=== PATIENT | female | born 1950 | race Caucasian/White ===

== ENCOUNTER 2017-12-15 07:03 | Day surgery (SDC) | payer MEDICARE, OTHER ==
[2017-12-15] MEDS ORDERED: Lactated Ringers 1,000 ML IV SCH (07:30)
[2017-12-15] MEDS ORDERED: fentaNYL 100 MCG/2 ML SDV ONE (09:04)
[2017-12-15] MEDS ORDERED: Propofol 200 MG/20 ML SDV ONE ×2 (09:04→09:42)
[2017-12-15] MEDS ORDERED: Midazolam 1 MG/ML 2 ML SDV ONE (09:04)
--- NOTE | 2017-12-15 14:42 | OR ---
DATE OF PROCEDURE: 12/15/2017 PREOPERATIVE DIAGNOSIS: Colon cancer screening. POSTOPERATIVE DIAGNOSIS: Unremarkable colonoscopy. PROCEDURE PERFORMED: Colonoscopy to the cecum. SURGEON: Duarte Loja MD ANESTHESIA: IV anesthesia with monitored anesthesia care. INDICATION: This 67-year-old white female is referred for a colonoscopy for colon cancer screening. She says her last colonoscopic exam was done 10 years ago. Also, she apparently mentioned that she has a history of colon polyps. The type is unknown to me. I counseled her for a colonoscopy with possible biopsy and/or polypectomy, including risks and alternatives, and she gave her informed consent to proceed. DESCRIPTION OF PROCEDURE: The patient was placed in the left lateral decubitus position. IV anesthesia was administered by the Anesthesia Service. Time-out was held. A rectal exam was performed, which was unremarkable. The flexible video Olympus colonoscope was introduced through her anus, up her rectum, and out her colon all the way to the cecum. To accomplish this, we did have to apply some abdominal compression. Once the cecum was reached, the scope was slowly withdrawn, examining the mucosa throughout. No mucosal abnormalities were noted. The scope was retroflexed in the rectum with the distal rectum appearing unremarkable. The scope was straightened and removed. She tolerated the procedure well. Duarte Loja MD /[id number]
== END 2017-12-15 11:50 | disposition home or self-care (01) ==
LOC: JP.SDS 07:03
PROVIDERS: ATTEND Surgery
DX: Z12.11 Encounter for screening for malignant neoplasm of colon (principal); E66.9 Obesity, unspecified; E78.5 Hyperlipidemia, unspecified; F32.9 Major depressive disorder, single episode, unspecified; Z86.010 Personal history of colon polyps
CPT/HCPCS: G0121; J2250; J2704; J3010; J7120

== ENCOUNTER 2024-05-31 05:51 | Day surgery (SDC) | payer MEDICARE, OTHER ==
[2024-05-31 06:36] LABS: HEMATOCRIT 40.8 % (34.3-46.0); HEMOGLOBIN 14.1 g/dL (11.2-15.5); MEAN CORPUSCULAR HEMOGLOBIN 30.9 pg (31.6-35.5); MEAN CORPUSCULAR HGB CONC 34.6 g/dL (31.6-35.5); MEAN CORPUSCULAR VOLUME 89.3 fL (81.4-99.0); RED BLOOD CELL COUNT 4.57 M/uL (3.77-5.24); WHITE BLOOD CELL COUNT,WBC 7.1 K/uL (3.2-11.0)
[2024-05-31] MEDS: Nozin Nasal Sanitizer NASBOTH ONE (06:46)
[2024-05-31 06:51] LABS: ANION GAP 6.1 mmol/L (5.0-14.0); CALCIUM 9.4 mg/dL (8.5-10.1); EST CRCL DRUG DOSING (CG) 49.79 mL/min; POTASSIUM,K 3.9 mmol/L (3.6-5.2)
[2024-05-31] MEDS: Lactated Ringers 1,000 ML IV SCH (07:07)
[2024-05-31] MEDS ORDERED: Midazolam 1 MG/ML 2 ML SDV ONE (07:40)
[2024-05-31] MEDS ORDERED: fentaNYL 100 MCG/2 ML SDV ONE (07:40)
[2024-05-31] MEDS ORDERED: Propofol 200 MG/20 ML SDV ONE (07:40)
[2024-05-31] MEDS: ceFAZolin 1 GM in Premix Bag 1 BAG IV ONE (09:10)
[2024-05-31] MEDS: Bupivacaine 0.5% 30 ML SDV ONE (09:14)
== END 2024-05-31 09:20 | disposition home or self-care (01) ==
LOC: JP.SDS 05:51
PROVIDERS: ATTEND Specialist
DX: M65.321 Trigger finger, right index finger (principal); E66.9 Obesity, unspecified
CPT/HCPCS: 01810; 26055; 36415; 80048; 85027; A9270; J0665; J0689; J2250; J2704; J3010; J7120

== ENCOUNTER 2024-06-20 09:08 | Emergency (ER) | payer MEDICARE, OTHER ==
[2024-06-20] MEDS: Ketorolac 15 MG/ML SDV IM ONE (09:53)
[2024-06-20] MEDS: Acetaminophen 500 MG Tab PO ONE (10:37)
[2024-06-20] MEDS: oxyCODONE 5 MG Tab PO ONE (10:37)
== END 2024-06-20 14:01 | disposition home or self-care (01) ==
LOC: JP.ED 09:08
DX: S82.852A Displaced trimalleolar fracture of left lower leg, initial encounter for closed fracture (principal); S82.851A Displaced trimalleolar fracture of right lower leg, initial encounter for closed fracture; E78.00 Pure hypercholesterolemia, unspecified; Z79.899 Other long term (current) drug therapy; W18.30XA Fall on same level, unspecified, initial encounter
CPT/HCPCS: 29515; 71045; 73610; 96372; 99283; A9270; J1885